=== PATIENT | female | born 1970 | race African-American/Black ===

== ENCOUNTER 2023-05-08 10:38 | Emergency (ER) | payer MEDICAID ==
[~2023-05-08] VITALS: Ht 175.3 cm; Wt 59.1 kg
[2023-05-08 10:56] VITALS: TEMP 98.7
[2023-05-08 11:15] LABS: COVID AG,FIA SOURCE NASAL SWAB
[2023-05-08 11:21] LABS: BASOPHILS % (AUTO) 0.4 % (0.0-2.0); EOSINOPHILS % (AUTO) 0.1 % (1.0-6.0); HEMATOCRIT 46.4 % (36-46); HEMOGLOBIN 15.5 g/dL (12.0-16.0); LYMPHOCYTES # (AUTO) 1.4 K/uL (1.0-4.8); LYMPHOCYTES % (AUTO) 10.1 % (22.0-44.0); MEAN CORPUSCULAR HEMOGLOBIN 29.6 pg (26.0-34.0); MEAN CORPUSCULAR HGB CONC 33.5 G/dL (31.0-37.0); MEAN CORPUSCULAR VOLUME 88 fL (80-100); MONOCYTES # (AUTO) 0.5 K/uL (0.1-1.0); MONOCYTES % (AUTO) 3.8 % (2.0-9.0); NEUTROPHILS # (AUTO) 11.6 K/uL (1.8-7.7); PLATELET COUNT (AUTO) 270 K/uL (150-450); RED BLOOD CELL COUNT(AUTO) 5.25 MIL/uL (4.00-5.20); RED CELL DISTRIBUTION WIDTH 14.8 % (11.5-14.5); WHITE BLOOD COUNT (AUTO) 13.5 K/uL (4.5-11.0)
[2023-05-08 11:25] LABS: NEUTROPHILS % (AUTO) 85.6 % (40.0-70.0)
[2023-05-08 11:42] LABS: ANION GAP 10 mmol/L (8-16); CALCIUM, TOTAL 11.5 mg/dL (8.8-10.5); CARBON DIOXIDE 28 mmol/L (22-29); CHLORIDE 96 mmol/L (98-107); CREATININE 0.84 mg/dL (0.60-1.30); GLOMERULAR FILTR. RATE CALC > 60 mL/min (>60); GLUCOSE,RANDOM 123 mg/dL (70-110); POTASSIUM 3.9 mmol/L (3.5-5.1); SODIUM SERUM 134 mmol/L (136-145); UREA NITROGEN, BLOOD 9 mg/dL (7-18)
[2023-05-08 11:48] LABS: ALANINE AMINOTRANSFERASE 51 U/L (12-78); ALBUMIN 4.4 g/dL (3.4-5.0); ALKALINE PHOSPHATASE 97 U/L (46-116); ASPARTATE AMINOTRANSFERASE 21 U/L (15-37); BILIRUBIN,TOTAL 0.5 mg/dL (0.1-1.0); LIPASE 41 U/L (16-77)
[2023-05-08 11:49] LABS: INFLUENZA TYPE A NEGATIVE FOR TYPE A (NEGATIVE); INFLUENZA TYPE B NEGATIVE FOR TYPE B (NEGATIVE); SARS-COV2 (COVID) ANTIGEN,FIA Negative (Negative)
[2023-05-08] MEDS: MAG HYDROX/ALUMINUM HYD/SIMETH 30 ML SUSPENSION UDCUP PO ONE (12:34)
[2023-05-08] MEDS: FAMOTIDINE 20 MG/2 ML VIAL IVP ONE (12:34)
[2023-05-08] MEDS: ONDANSETRON HCL 4 MG/2 ML VIAL IVP ONE (12:34)
[2023-05-08] MEDS: ACETAMINOPHEN 500 MG TABLET PO ONE (12:34)
[2023-05-08] MEDS: MORPHINE SULFATE 2 MG/ML SYRINGE IVP ONE (12:34)
[2023-05-08] MEDS: SODIUM CHLORIDE 0.9% 1,000 ML IV ONE (12:35)
[2023-05-08] MEDS ORDERED: ACET-3385 PO (12:45)
[2023-05-08] MEDS ORDERED: ONDA-104 PO (12:45)
[2023-05-08 13:36] VITALS: BP 153/101; PULSE 70; RESP 18
== END 2023-05-08 14:03 | disposition home or self-care (01) ==
LOC: EMS 10:38
DX: R11.2 Nausea with vomiting, unspecified (principal); Z20.822 Contact with and (suspected) exposure to COVID-19
CPT/HCPCS: 99284; 96374; 96375; 96361; 87426; 80053; 83690; 84703; 85025; 87804; 36415; J3490; J2270; J2405; J7030